=== PATIENT | female | born 1960 | race Caucasian/White ===

== ENCOUNTER 2023-11-08 18:27 | Emergency (ER) | payer MEDICAID ==
[~2023-11-08] VITALS: Ht 165.1 cm; Wt 72.7 kg
[2023-11-08 18:57] VITALS: BP 142/87; PULSE 74; RESP 16; TEMP 98.1; O2SAT 98
[2023-11-08] MEDS ORDERED: proparacaine 0.5% ophthalmic drops 15ml EACHEYE ONE (21:00)
[2023-11-08] MEDS ORDERED: ciprofloxacin 0.3% 2.5ml ophthalmic solution LEFTEYE ONE (21:40)
== END 2023-11-08 22:01 ==
LOC: ER 18:28
DX: S05.02XA Injury of conjunctiva and corneal abrasion without foreign body, left eye, initial encounter (principal); V89.2XXA Person injured in unspecified motor-vehicle accident, traffic, initial encounter; Y93.89 Activity, other specified; Y92.89 Other specified places as the place of occurrence of the external cause; Y99.8 Other external cause status
CPT/HCPCS: 70150; 99283